=== PATIENT | female | born 1970 | race Caucasian/White ===

== ENCOUNTER 2017-03-18 10:56 | Emergency (ER) | payer OTHER ==
[~2017-03-18] VITALS: Ht 165.1 cm; Wt 68.0 kg
[2017-03-18 11:18] VITALS: BP 108/71
[2017-03-18] MEDS ORDERED: IBUPROFEN 400 MG TABLET. PO ONE (11:32)
[2017-03-18 11:44] LABS: INFLUENZA A PATIENT POSITIVE (NEGATIVE); INFLUENZA B PATIENT NEGATIVE (NEGATIVE)
[2017-03-18] MEDS ORDERED: IBUPROFEN 800 MG TABLET. PO ONE (11:45)
[2017-03-18] MEDS ORDERED: BENZ100C PO (12:21)
[2017-03-18] MEDS ORDERED: OSEL75CA PO (12:21)
[2017-03-18] MEDS ORDERED: HYDR-971 PO (12:21)
--- NOTE | 2017-03-18 12:22 | PHYS DOC ---
Text Departure: Impression: Primary Impression: Influenza A Additional Impressions: Fever Tobacco abuse counseling Disposition: HOME, SELF-CARE (At 1217) Condition: IMPROVED Patient Instructions: Influenza A (H1N1), Smoking Cessation, Tips For Success Scripts Benzonatate (TESSALON PERLE) 100 Mg Capsule 1 CAP PO TID, #21 CAP Prov: EDY MOSQUERA MD 03/18/17 Hydrocodone Bit/Acetaminophen (NORCO 5-325 TABLET) 1 Each Tablet 1 TAB PO PRN Q6HRS Y for PAIN, #14 TAB 0 Refills Prov: EDY MOSQUERA MD 03/18/17 Oseltamivir Phosphate (TAMIFLU) 75 Mg Capsule 1 CAP PO BID, #10 CAP Prov: EDY MOSQUERA MD 03/18/17 General Chief Complaint: COUGH Stated Complaint: COUGH/CONGESTION/FEVER Time Seen by MD: 11:06 Source: patient Problems: History of Present Illness Initial Comments 47-year-old male patient complaining of sudden onset of cough and way and she and fever up to 102 since last night with headache and generalized weakness. Patient states she had sick contacts at home. She denies sore throat, nasal congestion, earache, vomiting and diarrhea, urinary symptoms, neutropenic, focal neuro deficit noted during of consciousness. Severity: moderate Associated Symptoms: cough, fever/chills, headaches, loss of appetite, malaise , weakness Allergies: Coded Allergies: Sulfa (Sulfonamide Antibiotics) (Verified Allergy, Intermediate, 03/18/17) Past Medical History Medical History: no pertinent history Surgical History: no surgical history Social History Smoker: cigarettes, less than 1 pack/day Review of Systems Constitutional: see HPI, chills, fever, malaise Respiratory: cough, shortness of breath Cardiovascular: chest pain (with cough) Gastrointestinal: no symptoms reported Genitourinary: no symptoms reported Musculoskeletal: see HPI, muscle pain Skin: no symptoms reported Psychiatric/Neurological: no symptoms reported Hematologic/Lymphatic: no symptoms reported Immunological/Allergic: no symptoms reported All Other Systems: Reviewed and Negative Physical Exam General Appearance: WD/WN, mild distress, other (Febrile, T-102.5) Ear, Nose, Throat: hearing grossly normal, normal ENT inspection, normal pharynx Neck: non-tender, full range of motion, supple, normal inspection Respiratory: chest non-tender, lungs clear, normal breath sounds, no respiratory distress Cardiovascular: normal peripheral pulses, regular rate, rhythm Gastrointestinal: normal bowel sounds, non tender, soft, no organomegaly Back: normal inspection, no CVA tenderness, no vertebral tenderness Extremities: normal range of motion, non-tender Neurologic/Psychiatric: hostler helper II-XII nml as tested, no motor/sensory deficits, alert, normal mood/affect, oriented x 3 Skin: normal color, warm/dry Lymphatic: no adenopathy Orders, Labs, Meds Evaluation of the patient in ER showed 47-year-old patient with sudden onset of cough and myalgia and fever since last night. Temperature 102.5 and ER and positive for a test. Patient considered ibuprofen and discharged with a prescription of Tamiflu, [place], Tessalon and instruction to increase fluid intake and follow up with her primary care physician in 2-3 days if not getting better. EDY MOSQUERA MD Mar 18, 2017 12:22
== END 2017-03-18 12:27 | disposition home or self-care (01) ==
LOC: ER 10:56
DX: J09.X2 Influenza due to identified novel influenza A virus with other respiratory manifestations (principal); F17.210 Nicotine dependence, cigarettes, uncomplicated; Z88.2 Allergy status to sulfonamides
CPT/HCPCS: 87804; 99284

== ENCOUNTER 2017-12-09 12:01 | Emergency (ER) | payer OTHER ==
[~2017-12-09] VITALS: Ht 142.2 cm; Wt 78.0 kg
[2017-12-09 12:01] VITALS: BP 119/76
[~2017-12-09 12:01] MED LIST: BENZ100C PO; HYDR-971 PO; OSEL75CA PO
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
[2017-12-09] MEDS ORDERED: predniSONE 20 MG TABLET ONE (13:29)
[2017-12-09] MEDS ORDERED: PRED-220 PO (13:30)
[2017-12-09] MEDS ORDERED: predniSONE 20 MG TABLET PO ONE (13:30)
== END 2017-12-09 13:40 | disposition home or self-care (01) ==
LOC: ER 12:01
DX: L23.7 Allergic contact dermatitis due to plants, except food (principal); Z88.2 Allergy status to sulfonamides
CPT/HCPCS: 99283; J7512

== ENCOUNTER 2018-04-05 14:33 | Emergency (ER) | payer OTHER ==
[~2018-04-05] VITALS: Ht 167.6 cm; Wt 82.0 kg
[~2018-04-05 14:33] MED LIST changes: +HYDR-3165 PO; -HYDR-971 PO; +PRED-220 PO
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
[2018-04-05] MEDS ORDERED: TRAM50TA PO (16:15)
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
[2018-04-05 16:20] VITALS: BP 137/83
== END 2018-04-05 16:20 | disposition home or self-care (01) ==
LOC: ER 14:33
DX: S20.212A Contusion of left front wall of thorax, initial encounter (principal); S40.011A Contusion of right shoulder, initial encounter; Z88.2 Allergy status to sulfonamides; Z88.8 Allergy status to other drugs, medicaments and biological substances; Y04.0XXA Assault by unarmed brawl or fight, initial encounter; Y93.89 Activity, other specified; Y92.89 Other specified places as the place of occurrence of the external cause; Y99.8 Other external cause status
CPT/HCPCS: 71100; 73030; 99283

== ENCOUNTER 2020-03-29 09:27 | Emergency (ER) | payer OTHER ==
[~2020-03-29] VITALS: Ht 167.6 cm; Wt 80.0 kg
[~2020-03-29 09:27] MED LIST changes: +TRAM50TA PO
[2020-03-29] MEDS ORDERED: GABAPENTIN 100 MG CAPSULE. PO ONE (10:00)
[2020-03-29] MEDS ORDERED: GABA100C81 PO (10:07)
--- NOTE | 2020-03-29 10:08 | PHYS DOC ---
Past History Past Medical History: Other Additional Past Medical Histor: [id number] Past Surgical History: Cholecystectomy, , Tonsillectomy Alcohol Use: Rarely Drug Use: None Adult General Chief Complaint Chief Complaint: BACK PAIN OR INJURY [facility] HPI Patient is a 50-year-old female presenting for chronic back pain. Patient reports suffering injury January 04, 2020 when she was picking 100 pound item off the ground and used her back and extending motion causing right lower back pain. She has been seen at our facility in addition to [facility] er in the past 4 weeks for ongoing right-sided back pain. She has been diagnosed with sciatica and has had extensive ER work-up involving laboratory analysis, plain radiographs and CT imaging that were all grossly nonconcerning for any emergent and/or surgical pathology. She has been taking Motrin and Tylenol as needed for pain with minimal relief in symptoms, she recently finish ed steroid burst for sciatic symptoms with mild relief in symptoms but after she discontinued use, the symptoms came back. She has had no repeat injury or inciting event. She continues to see chiropractor in outpatient setting who performs manipulations on patient which also provides temporary relief. She does not have a primary care physician, has not ever seen a neurosurgeon for this issue. Denies any history of cancer, immunodeficiency, history of IV drug use, no recent fever, pain does not wake her from sleep. No saddle anesthesia, bladder and/or bowel incontinence. She does admit though that ongoing pain has caused dysphoric mood and decreased ability to perform activities of daily living Review of Systems Review of Systems Fourteen body systems of review of systems have been reviewed. See HPI for pertinent positives and negative responses, other weir all other systems are negative, non-pertinent or non-contributory Allergies Allergies Allergies Coded Allergies Type Severity Reaction Last Updated Verified Sulfa (Sulfonamide Antibiotics) Allergy Intermediate 03/29/20 Yes diphenhydramine Allergy Unknown 03/29/20 Yes Physical Exam Physical Exam Constitutional: Pt is oriented to person, place, and time. Pt appears well-developed and well-nourished. HEENT: Head: Normocephalic and atraumatic. External ears unremarkable, negative ortiz sign Conjunctivae and EOM are normal. Pupils are equal, round, and reactive to light. Oropharynx is clear and moist. No hematomas or lacerations or abrasions to face or scalp OP clear, no blood, no malocclusion, dentition intact Nares clear, no nasal septal hematoma Midface stable Neck: C-spine midline nontender, no step-offs Cardiovascular: Normal rate, regular rhythm and normal heart sounds. Pulmonary/Chest: Effort normal and breath sounds normal. No respiratory distress. No wheezes. CTA bilaterally Abdominal: Soft. Bowel sounds are normal. Pt exhibits no distension. There is no tenderness. Musculoskeletal: No bony tenderness to extremities, no deformities, full ROM extremities Chest wall stable Pelvis stable and non-tender No vertebral TTP and spine without stepoffs Patient points to medial portion of right buttock is focal area of pain that radiates to posterior right lower extremity to heel on posterior aspect only Neurological: Pt is alert and oriented to person, place, and time. Moving all extremities willfully, able to wiggle all fingers and toes Alert and oriented x 3 Sensation intact to light and sharp touch, no saddle anesthesia Bilateral patellar and Achilles tendon reflexes 2+ Positive straight leg raise on right with exacerbation of pain with forced toe dorsiflexion Skin: Skin is warm and dry. No abrasions, no lacerations Psychiatric: Tearful affect, anxious Current Patient Data Vital Signs Vital Signs Date Time Temp Pulse Resp B/P (MAP) Pulse Ox O2 Delivery O2 Flow Rate FiO2 03/29/20 09:34 97.8 105 18 141/79 (99) 97 EKG EKG [] Radiology/Procedures Radiology/Procedures [] Heart Score HEART Score for Chest Pain: HEART Score for Chest Pain Response (Comments) Value History Slighlty/Non-Suspicious 0 Age >45 - < 65 1 Risk Factors 1 or 2 Risk Factors 1 Total 2 Risk Factors: Risk Factors: DM, Current or recent (<one month) smoker, HTN, HLP, family history of CAD, obesity. Risk Scores: Risk Factors: DM, Current or recent (<one month) smoker, HTN, HLP, family history of CAD, obesity. Course & Med Decision Making Course & Med Decision Making ABCs, history and physical examination non-concerning. There are no red flag signs of back pain present. I have low suspicion for malignancy/mets, acute Spinal Fracture, Vertebral Osteomyelitis, Epidural Abscess, Infected or Obstructing Kidney Stone. Their presentation appears most likely to be secondary to non-emergent musculoskeletal etiology vs non-emergent disc herniation. Patient's presentation consistent with sciatica ED Workup: Defer imaging and labwork for outpatient follow up at this time given recent extensive work-up at [facility] that included benign CT Disposition: Discharge. 100 mg gabapentin administered while in ER with subsequent prescription written. Strict return precautions discussed with patient with full understanding. Advised patient to follow up promptly with primary care provider, she was given resources on local providers that are seeing new patients Marleny Disclaimer Marleny Disclaimer This electronic medical record was generated, in whole or in part, using a voice recognition dictation system. Departure Departure: Impression: Primary Impression: Sciatica of right side Disposition: 01 DC HOME SELF CARE/HOMELESS Condition: STABLE Referrals: PCP,LAYNE (PCP) Patient Instructions: Sciatica, Sciatica with Rehab-Sports[facility] Additional Instructions: You were evaluated in the Emergency Department today for back pain. Your evaluation suggests no acute abnormalities which require further intervention at this time. Your pain is most likely due to to a musculoskeletal cause that should improve with supportive care. As discussed, please use attached resources of local primary care physicians to call and schedule outpatient follow-up. You would benefit from physical therapy referral and consideration for neurosurgical consultation. - Move around as tolerated but avoiding heavy lifting. ``Bed rest is not recommended nor is it the best treatment for low back pain. - Medications will help control your discomfort: - -Ibuprofen (800 mg every 8 hours for pain) with food. - -Tylenol - Do not drink alcohol, drive a car, operate machinery, or get up on ladders or heights when taking any prescribed pain medications. - Do not drive home if you received prescribed pain medications here in the ED. Return to the ED immediately if you develop any of the following problems: - Leaking urine or difficulty urinating; - Inability to control your bowels; - New numbness or weakness in your legs or numbness between your legs; - Inability to walk - Fever Scripts Gabapentin (Neurontin) 100 Mg Capsule 1 CAP PO TID for Sciatica for 30 Days, #90 CAP 0 Refills Prov: YOSEF GARCIA DO 03/29/20 YOSEF GARCIA DO Mar 29, 2020 10:08
[2020-03-29 10:30] VITALS: BP 142/90
== END 2020-03-29 10:35 | disposition home or self-care (01) ==
LOC: ER 09:27
DX: M54.41 Lumbago with sciatica, right side (principal); G89.29 Other chronic pain; Z90.49 Acquired absence of other specified parts of digestive tract; Z98.890 Other specified postprocedural states; Z88.2 Allergy status to sulfonamides; Z88.8 Allergy status to other drugs, medicaments and biological substances
CPT/HCPCS: 99283